=== PATIENT | female | born 1955 | race Caucasian/White ===

== ENCOUNTER 2018-03-30 11:13 | Outpatient (CLI) | payer BC ==
--- NOTE | 2018-04-03 11:00 | MMO ---
BILATERAL SCREENING MAMMOGRAM: Date: 03/30/18 HISTORY: 62-year-old female. Routine screening mammography. COMPARISON: 03/21/17, 03/15/16, 03/10/15. TECHNIQUE: CC and MLO views of both breasts are submitted for interpretation. This patient's mammogram was reviewed with the assistance of computer-aided detection. FINDINGS: The breasts are composed of scattered fibroglandular tissue. Bilaterally, no suspicious dominant mass , architectural distortion, or suspicious calcifications. Benign-appearing calcification left breast. IMPRESSION: BIRADS 2: Benign Finding(s) RECOMMENDATION: Annual mammogram. POS: [facility]
== END 2018-03-30 11:14 | disposition home or self-care (01) ==
LOC: SCSMAMMO 11:13
PROVIDERS: ATTEND Obstetrics & Gynecology
DX: Z12.31 Encounter for screening mammogram for malignant neoplasm of breast (principal)
CPT/HCPCS: 77067

== ENCOUNTER 2019-01-25 08:52 | Outpatient (CLI) | payer BC ==
--- NOTE | 2019-01-25 10:52 | BD ---
DEXA BONE MINERAL DENXITY STUDY: HISTORY: Screening. COMPARISON: None. FINDINGS: Lumbar Spine: BMD (g/cm2) L1 0.939 T-Score: -0.5 1.1 L2 0.910 T-Score: -1.1 0.6 L3 0.892 T-Score: -1.7 0.1 L4 0.899 T-Score: -1.6 0.3 L1-L4 0.907 T-Score: -1.3 0.3 WRIST: 1/3 0.679 T-Score: -0.2 1.4 Mid 0.591 T-Score: -0.3 1.3 Ulna distal 0.387 T-Score: -1.0 0.2 Impression: Osteopenia with elevated fracture risk. POS: [facility]
== END 2019-01-25 08:53 | disposition home or self-care (01) ==
LOC: BICMAMMO 08:52
PROVIDERS: ATTEND Obstetrics & Gynecology
DX: Z13.820 Encounter for screening for osteoporosis (principal); M85.89 Other specified disorders of bone density and structure, multiple sites
CPT/HCPCS: 77080